=== PATIENT | male | born 1935 | race Caucasian/White ===

== ENCOUNTER 2020-07-04 09:51 | Outpatient (RCR) | payer MEDICARE, BC, SELFPAY ==
[2015-09-06 12:37] VITALS: BMI 32.8
== END 2020-07-04 23:59 ==
LOC: IMMUN 09:51
PROVIDERS: PCP Family Medicine; Referring Provider Family Medicine; Visit Provider Family Medicine
DX: Z23 Encounter for immunization (principal)
CPT/HCPCS: 0011A; 0012A